=== PATIENT | female | born 2000 | race Two or more races ===

== ENCOUNTER 2025-03-30 14:36 | Outpatient (CLI) | payer OTHER | END 2025-03-30 14:42 | disposition home or self-care (01) | LOC: PRENATAL 14:36 | PROVIDERS: ATTEND Obstetrics & Gynecology Maternal & Fetal Medicine | DX: O26.849 Uterine size-date discrepancy, unspecified trimester (principal); Z3A.16 16 weeks gestation of pregnancy ==

== ENCOUNTER 2025-04-04 20:54 | Emergency (ER) | payer OTHER ==
[~2025-04-04] VITALS: Ht 175.3 cm; Wt 59.0 kg
[2025-04-04] MEDS ORDERED: 0.9 % SODIUM CHLORIDE 1,000 ML IV STA (21:23)
[2025-04-04 21:57] LABS: BASO % 0.1 % (0.1-1.2); EOS # 0.12 (0.04-0.54); EOS % 1.5 % (0.7-7.0); LYMPH # 2.40 (1.18-3.74); LYMPH % 29.1 % (19.3-53.1); MEAN PLATELET VOLUME 10.00 fl (9.4-12.4); MONO # 0.60 (0.24-0.82); MONO % 7.3 % (4.7-12.5); NEUT # 5.03 (1.56-6.13); NEUT % 61.0 % (34.0-71.1); RED CELL DISTRIBUTION WIDTH 11.9 % (11.6-14.4)
[2025-04-05 00:06] LABS: URINE APPEARANCE CLEAR; URINE BILIRRUBIN NEGATIVE (NEGATIVE); URINE BLOOD NEGATIVE; URINE COLOR YELLOW; URINE GLUCOSE NEGATIVE (NEGATIVE); URINE KETONE NEGATIVE (NEGATIVE)
[2025-04-05 00:07] LABS: URINE BACTERIA MODERATE; URINE EPITHELIAL CELLS 0-4 /HPF; URINE LEUKOCYTE TRACES; URINE NITRATE NEGATIVE; URINE PROTEIN NEGATIVE (NEGATIVE); URINE RBC 0-3 /HPF; URINE UROBILINOGEN 0.2 E.U./dl; URINE WBC 0-2 /hpf
== END 2025-04-04 23:28 | disposition home or self-care (01) ==
LOC: ER 20:54
DX: O20.8 Other hemorrhage in early pregnancy (principal); Z3A.16 16 weeks gestation of pregnancy; R10.2 Pelvic and perineal pain

== ENCOUNTER 2025-04-30 14:03 | Outpatient (CLI) | payer OTHER | END 2025-04-30 14:04 | disposition home or self-care (01) | LOC: PRENATAL 14:03 | PROVIDERS: ATTEND Obstetrics & Gynecology Maternal & Fetal Medicine | DX: O44.00 Complete placenta previa NOS or without hemorrhage, unspecified trimester (principal); Z3A.20 20 weeks gestation of pregnancy ==

== ENCOUNTER → 2025-07-23 12:53 | Outpatient (CLI) | payer OTHER | END | disposition home or self-care (01) | LOC: PRENATAL 12:53 | PROVIDERS: ATTEND Obstetrics & Gynecology Maternal & Fetal Medicine | DX: O26.843 Uterine size-date discrepancy, third trimester (principal); O36.8130 Decreased fetal movements, third trimester, not applicable or unspecified; Z3A.32 32 weeks gestation of pregnancy ==